=== PATIENT | male | born 1950 | race African-American/Black ===

== ENCOUNTER 2016-12-14 10:13 | Day surgery (SDC) | payer OTHER ==
[~2016-12-14 10:13] MED LIST: AK-Dilate OD SCH; MYDRIACYL OD SCH; TETRACAINE 0.5% OD PRN; VIGAMOX OD SCH
== END 2016-12-14 10:14 | disposition home or self-care (01) ==
LOC: OR 10:13
DX: H26.9 Unspecified cataract (principal); Z53.8 Procedure and treatment not carried out for other reasons

== ENCOUNTER 2018-01-17 13:35 | Emergency (ER) | payer MEDICARE ==
[2018-01-17 15:38] LABS: Basophils # (Auto) 0.1 K/mm3 (0.0-0.1); Eosinophils # (Auto) 0.1 K/mm3 (0.0-0.4); Eosinophils % (Auto) 1.9 % (0.0-4.3); Hematocrit 47.9 % (35.5-45.6); Hemoglobin 16.4 gm/dl (11.8-15.2); Lymphocytes # (Auto) 2.6 K/mm3 (1.2-5.4); Lymphocytes % (Auto) 37.9 % (13.4-35.0); Mean Corpuscular HGB Conc 34 % (32-34); Mean Corpuscular Hemoglobin 35 pg (28-32); Mean Corpuscular Volume 103 fl (84-94); Monocytes # (Auto) 1.1 K/mm3 (0.0-0.8); Monocytes % (Auto) 15.8 % (0.0-7.3); Platelet Count 200 K/mm3 (140-440); Red Blood Count 4.68 M/mm3 (3.65-5.03); Red Cell Distribution Width 13.2 % (13.2-15.2)
--- NOTE | 2018-01-17 15:38 | Cat Scan Report ---
FINAL REPORT EXAM: CT HEAD/BRAIN WO CON HISTORY: fall with confusion for one day TECHNIQUE: CT of the head was performed without intravenous contrast. PRIORS: None. FINDINGS: The ventricles are normal in shape and position. The ventricles are nondilated. No intracranial hemorrhage, mass, mass effect, midline shift or evidence of acute ischemic infarct. The basilar cisterns are patent. Focal area of low attenuation is seen in the left temporal subcortical white matter. The paranasal sinuses are clear. There is mild left frontal extracranial soft tissue swelling. The calvarium is intact. The orbits are intact. The mastoid air cells are clear. IMPRESSION: 1. No acute intracranial abnormality. 2. Probable old lacunar infarct in the left temporal subcortical white matter. 3. Mild left frontal extracranial soft tissue swelling.
[2018-01-17 15:48] LABS: INR 1.01 (0.87-1.13); Partial Thromboplastin Time 32.6 Sec. (24.2-36.6)
[2018-01-17 15:49] LABS: BUN/Creatinine Ratio 16; Blood Urea Nitrogen 13 mg/dL (9-20); Calcium 8.9 mg/dL (8.4-10.2); Hemolysis Index 16
--- NOTE | 2018-01-17 16:23 | XRay Report ---
FINAL REPORT EXAM: XR CHEST 1V AP HISTORY: cp TECHNIQUE: Frontal chest radiograph. PRIORS: None. FINDINGS: Aortic calcifications are seen. The cardiomediastinal silhouette is normal. No focal consolidation. No pleural effusion. No pneumothorax. No acute osseous abnormality. IMPRESSION: No acute cardiopulmonary process.
--- NOTE | 2018-01-17 18:46 | Emergency Department Report ---
ED General Adult HPI - General Chief complaint: Fall Stated complaint: FALL Time Seen by Provider: 01/17/18 15:26 Source: patient Mode of arrival: Ambulatory Limitations: Other - History of Present Illness Initial comments: This is a 67 year old male who is said to have a history of dementia, hypertension and high cholesterol. He was seen by his family physician in her office today. He was released from the office and allowed to drive to this facility. The physician () set the patient along with a correspondence stating patient needs to be evaluated in the emergency department after fall...Patient may need imaging of his head." The patient himself states that he fell onto his left side. He complains of soreness in his left costal area although the soreness appears to be quite intermittent. He was able to drive to this facility without difficulty. He was not disoriented in the family physician's office nor was he so here. He stated that he is able to drive. He stated that his is at work today until 9:30 PM. He denies anterior chest pain. He denies shortness of breath. He denies any other injury. I did speak with the patient both in [place] and through a [place] chemical equipment sales engineer who is a respiratory therapist here. He had no other supplemental complaints. He did not want to give us the phone number of his . -: days(s) Location: abdomen (essentially left flank/costal area) Radiation: non-radiation Quality: aching Consistency: intermittent Improves with: none Worsens with: none Associated Symptoms: denies other symptoms Treatments Prior to Arrival: none - Related Data Home Medications Medication Instructions Recorded Confirmed Last Taken Donepezil [Aricept] 10 mg PO QDAY 12/13/16 12/13/16 Unknown Latanoprost 0.005% [Xalatan 0.005%] 1 drop OP QPM 12/13/16 12/13/16 Unknown Loteprednol Etabonate [Lotemax 1 - 2 drop OP TID 12/13/16 12/13/16 Unknown 0.5%] Triamter/Hctz 37.5-25 mg 1 tab PO QDAY 12/13/16 12/13/16 Unknown [Maxzide-25] Previous Rx's Medication Instructions Recorded Last Taken Type traMADol [Ultram] 50 mg PO Q6HR PRN #10 tablet 01/17/18 Unknown Rx Allergies Allergy/AdvReac Type Severity Reaction Status Date / Time aspirin [From Bufferin] Allergy Unknown Verified 12/13/16 11:01 calcium carbonate Allergy Unknown Verified 12/13/16 11:01 [From Bufferin] magnesium [From Bufferin] Allergy Unknown Verified 12/13/16 11:01 ED Review of Systems ROS: Stated complaint: FALL Other details as noted in HPI Constitutional: denies: chills, fever Eyes: denies: eye pain, eye discharge, vision change ENT: denies: ear pain, throat pain Respiratory: denies: cough, shortness of breath, wheezing Cardiovascular: as per HPI (soreness appears to be in the left costal/left flank ). denies: chest pain, palpitations Endocrine: no symptoms reported Gastrointestinal: as per HPI. denies: abdominal pain, nausea, diarrhea Genitourinary: denies: urgency, dysuria Musculoskeletal: denies: back pain, joint swelling, arthralgia Skin: denies: rash, lesions Neurological: denies: headache, weakness, paresthesias Psychiatric: denies: anxiety, depression Hematological/Lymphatic: denies: easy bleeding, easy bruising ED Past Medical Hx - Past Medical History Previous Medical History?: Yes Hx Hypertension: Yes (FOR 3 YRS) Hx Dementia: Yes Hx HIV: No Additional medical history: high cholesterol - Surgical History Past Surgical History?: No - Social History Smoking Status: Never Smoker Substance Use Type: Prescribed - Medications Home Medications: Home Medications Medication Instructions Recorded Confirmed Last Taken Type Donepezil [Aricept] 10 mg PO QDAY 12/13/16 12/13/16 Unknown History Latanoprost 0.005% [Xalatan 0.005%] 1 drop OP QPM 12/13/16 12/13/16 Unknown History Loteprednol Etabonate [Lotemax 1 - 2 drop OP TID 12/13/16 12/13/16 Unknown History 0.5%] Triamter/Hctz 37.5-25 mg 1 tab PO QDAY 12/13/16 12/13/16 Unknown History [Maxzide-25] traMADol [Ultram] 50 mg PO Q6HR PRN #10 tablet 01/17/18 Unknown Rx ED Physical Exam - General Limitations: Language Barrier General appearance: alert, in no apparent distress - Head Head exam: Present: atraumatic, normocephalic - Eye Eye exam: Present: normal appearance, PERRL, EOMI. Absent: scleral icterus - ENT ENT exam: Present: mucous membranes moist - Neck Neck exam: Present: normal inspection - Respiratory Respiratory exam: Present: normal lung sounds bilaterally. Absent: respiratory distress - Cardiovascular Cardiovascular Exam: Present: regular rate, normal rhythm. Absent: systolic murmur, diastolic murmur, rubs, gallop - GI/Abdominal GI/Abdominal exam: Present: soft, normal bowel sounds. Absent: distended, tenderness, guarding, rebound, rigid - Rectal Rectal exam: Present: deferred - Extremities Exam Extremities exam: Present: normal inspection - Back Exam Back exam: Present: normal inspection - Neurological Exam Neurological exam: Present: alert, oriented X3, CN II-XII intact. Absent: motor sensory deficit - Psychiatric Psychiatric exam: Present: normal affect, normal mood - Skin Skin exam: Present: warm, dry, intact, normal color. Absent: rash ED Course Vital Signs 01/17/18 01/17/18 01/17/18 14:37 15:40 16:00 Temperature 98.3 F 97.8 F Pulse Rate 80 71 64 Respiratory 18 13 12 Rate Blood Pressure 133/83 165/86 148/87 O2 Sat by Pulse 98 99 Oximetry 01/17/18 17:00 Temperature Pulse Rate 71 Respiratory 14 Rate Blood Pressure 151/82 O2 Sat by Pulse 98 Oximetry - Reevaluation(s) Reevaluation #1: Patient really had no significant pain complaints here. He was seen by the clinical social work aide. He is to be discharged when it is ascertained that he is safe to go home with family. 01/17/18 18:48 Reevaluation #2: Patient was minimally hyponatremic. This should resolve with adequate fluids. He will be referred back to his family physician. 01/17/18 18:49 ED Medical Decision Making - Lab Data Result diagrams: 01/17/18 15:23 01/17/18 15:23 Laboratory Results - last 24 hr 01/17/18 01/17/18 01/17/18 15:23 15:23 15:23 WBC 6.9 RBC 4.68 Hgb 16.4 H Hct 47.9 H MCV 103 H MCH 35 H MCHC 34 RDW 13.2 Plt Count 200 Lymph % (Auto) 37.9 H [place] % (Auto) 15.8 H Eos % (Auto) 1.9 Baso % (Auto) 1.0 Lymph # 2.6 [place] # 1.1 H Eos # 0.1 Baso # 0.1 Seg Neutrophils % 43.4 Seg Neutrophils # 3.0 PT 13.8 INR 1.01 APTT 32.6 Thrombin Time Sodium 134 L Potassium 3.9 Chloride 96.5 L Carbon Dioxide 24 Anion Gap 17 BUN 13 Creatinine 0.8 Estimated GFR > 60 BUN/Creatinine Ratio 16 Glucose 84 Calcium 8.9 Troponin T < 0.010 01/17/18 15:23 WBC RBC Hgb Hct MCV MCH MCHC RDW Plt Count Lymph % (Auto) [place] % (Auto) Eos % (Auto) Baso % (Auto) Lymph # [place] # Eos # Baso # Seg Neutrophils % Seg Neutrophils # PT INR APTT Thrombin Time 16.3 Sodium Potassium Chloride Carbon Dioxide Anion Gap BUN Creatinine Estimated GFR BUN/Creatinine Ratio Glucose Calcium Troponin T - Radiology Data Radiology results: report reviewed (CT of the brain showed old infarcts. Nothing acute. Chest x-ray showed no acute process) Critical care attestation.: If time is entered above; I have spent that time in minutes in the direct care of this critically ill patient, excluding procedure time. ED Disposition Clinical Impression: CVA, old, cognitive deficits Contusion, chest wall Qualifiers: Encounter type: initial encounter Laterality: left Qualified Code(s): S20.212A - Contusion of left front wall of thorax, initial encounter Disposition: DC-01 TO HOME OR SELFCARE Is pt being admited?: No Does the pt Need Aspirin: Yes Condition: Stable Instructions: Self Care Measures After a Stroke (ED), Contusion in Adults (ED) Additional Instructions: It is recommended that you take aspirin every day because she have evidence of prior stroke on your scan. Rx Ultram if he needs something for pain. Follow- up with your primary care provider. Prescriptions: traMADol [Ultram] 50 mg PO Q6HR PRN #10 tablet PRN Reason: Pain Referrals: PRIMARY CARE, [Primary Care Provider] - 2-3 Days Time of Disposition: 18:52
[2018-01-17 19:47] VITALS: BP 131/79
== END 2018-01-17 19:47 | disposition home or self-care (01) ==
LOC: ED 13:35
DX: S20.212A Contusion of left front wall of thorax, initial encounter (principal); R41.89 Other symptoms and signs involving cognitive functions and awareness; I10 Essential (primary) hypertension; E78.00 Pure hypercholesterolemia, unspecified; Z86.73 Personal history of transient ischemic attack (TIA), and cerebral infarction without residual deficits; Z88.6 Allergy status to analgesic agent; Z88.8 Allergy status to other drugs, medicaments and biological substances; W18.30XA Fall on same level, unspecified, initial encounter; Y93.89 Activity, other specified; Y92.89 Other specified places as the place of occurrence of the external cause; Y99.8 Other external cause status
CPT/HCPCS: 36415; 70450; 71045; 80048; 84484; 85025; 85610; 85670; 85730; 93005; 93010; 99284

== ENCOUNTER 2019-10-06 10:41 | Day surgery (SDC) | payer MEDICARE ==
[~2019-10-06 10:41] MED LIST changes: -AK-Dilate OD SCH; -MYDRIACYL OD SCH; +SODIUM CHLORIDE 0.9% 1000 ML 1,000 ML IV SCH; -TETRACAINE 0.5% OD PRN; -VIGAMOX OD SCH
--- NOTE | 2019-10-06 11:35 | Anesthesia Consultation ---
Anesthesia Consult and Med Hx Date of service: 10/06/19 - Airway Anesthetic Teeth Evaluation: Poor ROM Head & Neck: Adequate Mental/Hyoid Distance: Adequate Mallampati Class: Class III Intubation Access Assessment: Probably Good - Pre-Operative Health Status ASA Pre-Surgery Classification: ASA3 Proposed Anesthetic Plan: MAC - Pulmonary Hx Smoking: No SOB: Yes Hx Sleep Apnea: No - Cardiovascular System Hx Hypertension: Yes Hx Coronary Artery Disease: Yes (Artherosclerosis in proximal LAD noted in images) - Central Nervous System CVA: Yes (Left sided weakness; uses cane to ambulate) Hx Psychiatric Problems: No - Gastrointestinal Hx Gastroesophageal Reflux Disease: Yes - Endocrine Hx Liver Disease: Yes (Chronic hepatitis B) Hx Thyroid Disease: Yes - Other Systems Hx Cancer: No - Additional Comments Anesthesia Medical History Comments: Patient is a poor historian. Alert and orient x2.
--- NOTE | 2019-10-06 11:37 | Anesthesia Day of Surgery ---
Anesthesia Day of Surgery - Day of Surgery Patient Examined: Yes Patient H&P Reviewed: Yes Patient is NPO: Yes Beta Blockers: No
[2019-10-06] MEDS ORDERED: propofoL 200 MG/20 ML VIAL IV ONE ×2 (11:43→11:44)
[2019-10-06] MEDS ORDERED: WATER FOR IRRIG STERILE 1,000 ML BOTTLE ONE (11:44)
[2019-10-06] MEDS ORDERED: WATER FOR IRRIG STERILE 250 ML BOTTLE IR ONE (11:44)
--- NOTE | 2019-10-06 12:31 | Discharge Summary ---
Short Stay Discharge Plan Activity: advance as tolerated Weight Bearing Status: Weight Bear as Tolerated Diet: regular Follow up with: LILIBETH DURAN MD [Primary Care Provider] - 7 Days
--- NOTE | 2019-10-06 12:31 | Operative Report ---
Operative Report Operative Report: Colonoscopy with submucosal injection, snare polypectomy, multiple polyp ablations, hot biopsy polypectomy. DATE:10/06/2019 ATTENDING PHYSICIAN: Aravind Martinez M.D. PROFESSOR OF ANTHROPOLOGY: Aravind Martinez M.D. INDICATIONS: Patient is a 69y.o. male who presents for colorectal cancer screening . Patient also has a history of rectal bleeding and rectal pain. Patient also has a history of change in bowel habits. This colonoscopy is done to evaluate patient so that treatment may be directed based on the findings. CONSENT: Informed consent was obtained after the patient was advised regarding the nature of this procedure, its indications, potential benefits as well as possible complications including but not limited to bleeding, perforation, adverse reaction to medications, infection as well as cardiopulmonary complications. An informed written and verbal consent was then obtained after due opportunity was provided for questions and answers. MONITORING: Patient monitored continuously with pulse oximetry, electrocardiographic recordings as well as automatic blood pressure recordings. Patient remained stable throughout the procedure with no untoward events. PREOPERATIVE ASSESSMENT: Patient was assessed immediately prior to this procedure for capacity to tolerate moderate sedation/monitored anesthesia care. [place] anesthes[employer] association classification is 2. Mallampati class is 2. Hyomental distance is 3. INSTRUMENT: Olympus video colonoscope [id number]. MEDICATIONS: Propofol given intravenously in divided doses. For details, please refer to anesthesia records. DESCRIPTION OF PROCEDURE: Patient was placed in the left lateral decubitus position, after achieving sedation, a digital rectal examination was performed following which the colonoscope was introduced into the anal verge and advanced under direct visualization to the cecum which was identified by the ileocecal valve, the appendiceal orifice, the cecal strap as well as by direct transillumination in the right lower quadrant. Color texture mucosa and anatomy of the colon were carefully examined with the colonoscope. The colonoscope was then gently withdrawn with careful inspection of all mucosa surfaces. The patient tolerated the procedure well with no complications. After completion of the examination, patient was transferred to the recovery room. The prep written regimen was Clenpiq and the preparation was adequate, with the [place] prep scale score of 7. The following findings were noted. FINDINGS: Patient had diverticulosis involving the sigmoid colon and the descending colon, of moderate severity. The colon was mildly tortuous. The cecum otherwise was normal. The ascending colon was normal. In the transverse colon, patient had a 1 cm flat polyp. This was elevated with submucosal injection of saline and removed by snare electrocautery using a stiff snare (captivator [place] [employer]). The polyp was retrieved. Patient had multiple diminutive polyps in the rectum which were ablated. In all there were 7 of these. Patient had 2 additional flat polyps in the rectum that were removed by hot biopsy polypectomy and retrieved. On the retroflexed view at the anal verge patient had internal hemorrhoids. IMPRESSION: Transverse colon polyp status post submucosal injection, snare polypectomy. Multiple rectal polyp status post ablation. Rectal polyps status post hot biopsy polypectomy. Colonic diverticulosis. Internal Hemorrhoids . PLAN: Follow-up pathology report High fiber diet. Repeat colonoscopy in 1 year, if the polyps are adenomatous, due to presence of multiple colon polyps.
--- NOTE | 2019-10-06 12:34 | Post Anesthesia Evaluation ---
- Post Anesthesia Evaluation Patient Participated: Yes Airway Patent: Yes Stable Respiratory Function: Yes Nausea/Vomiting: No Temp > 96.8F: Yes Pain Manageable: Yes Adequeate Hydration: Yes Anesthesia Complications: No
[2019-10-06 12:44] VITALS: BP 115/71
[2019-10-06] MEDS ORDERED: LIDOCAINE MPF (2%) 20 MG/1 ML VIAL 5 ML ONE (13:00)
== END 2019-10-06 10:42 | disposition home or self-care (01) ==
LOC: GIO 10:41
PROVIDERS: ATTEND Internal Medicine Gastroenterology
DX: K62.5 Hemorrhage of anus and rectum (principal); K62.89 Other specified diseases of anus and rectum; R19.4 Change in bowel habit; B18.1 Chronic viral hepatitis B without delta-agent; K64.8 Other hemorrhoids; K63.5 Polyp of colon; K62.1 Rectal polyp; K63.89 Other specified diseases of intestine; K57.30 Diverticulosis of large intestine without perforation or abscess without bleeding; I25.10 Atherosclerotic heart disease of native coronary artery without angina pectoris; I10 Essential (primary) hypertension; K21.9 Gastro-esophageal reflux disease without esophagitis; Z88.6 Allergy status to analgesic agent; Z79.899 Other long term (current) drug therapy; Z86.73 Personal history of transient ischemic attack (TIA), and cerebral infarction without residual deficits; Z88.8 Allergy status to other drugs, medicaments and biological substances
CPT/HCPCS: 45381; 45384; 45385; 45388; 88305; J2704; J7030